=== PATIENT | female | born 1950 | race Two or more races ===

== ENCOUNTER 2022-05-05 10:44 | Outpatient (CLI) | payer OTHER | END 2022-05-05 10:52 | disposition home or self-care (01) | LOC: RAD 10:44 | PROVIDERS: ATTEND Orthopaedic Surgery | DX: M25.531 Pain in right wrist (principal) ==

== ENCOUNTER 2022-05-05 14:38 | Outpatient (CLI) | payer OTHER | END 2022-05-05 14:47 | disposition home or self-care (01) | LOC: LAB 14:38 | PROVIDERS: ATTEND Orthopaedic Surgery | DX: D64.9 Anemia, unspecified (principal); E88.9 Metabolic disorder, unspecified; D68.8 Other specified coagulation defects; N39.0 Urinary tract infection, site not specified; Z76.89 Persons encountering health services in other specified circumstances; I10 Essential (primary) hypertension ==

== ENCOUNTER 2022-09-03 10:15 | Outpatient (CLI) | payer OTHER ==
[~2022-09-03 10:15] MED LIST: TIZANIDINE HCL4 MG PO; TRAMADOL HCL50 MG PO
== END 2022-09-03 10:20 | disposition home or self-care (01) ==
LOC: RAD 10:15
PROVIDERS: ATTEND Orthopaedic Surgery
DX: S52.571D Other intraarticular fracture of lower end of right radius, subsequent encounter for closed fracture with routine healing (principal); M25.552 Pain in left hip

== ENCOUNTER 2022-09-04 10:55 | Outpatient (CLI) | payer OTHER | END 2022-09-04 12:54 | disposition home or self-care (01) | LOC: LAB 10:55 | PROVIDERS: ATTEND Orthopaedic Surgery | DX: D64.9 Anemia, unspecified (principal); E88.9 Metabolic disorder, unspecified; E03.9 Hypothyroidism, unspecified; D68.8 Other specified coagulation defects; Z76.89 Persons encountering health services in other specified circumstances ==

== ENCOUNTER 2022-09-10 12:09 | Emergency (ER) | payer OTHER ==
[~2022-09-10] VITALS: Ht 162.6 cm; Wt 72.6 kg
[2022-09-10] MEDS ORDERED: SYNTHROID88 MCG PO (12:19)
[2022-09-10] MEDS ORDERED: ELIQUIS2.5 MG PO (12:19)
== END 2022-09-10 22:46 | disposition home or self-care (01) ==
LOC: ER 12:09
DX: C79.9 Secondary malignant neoplasm of unspecified site (principal); C79.51 Secondary malignant neoplasm of bone